=== PATIENT | male | born 1945 | race Caucasian/White ===

== ENCOUNTER 2019-03-21 08:36 | Day surgery (SDC) | payer OTHER, MEDICARE ==
[~2019-03-21 08:36] MED LIST: Lactated Ringers 1,000 ML IV SCH
[2019-03-21] MEDS ORDERED: Propofol 200 MG/20 ML SDV ONE (10:18)
[2019-03-21] MEDS ORDERED: fentaNYL 100 MCG/2 ML SDV ONE (10:18)
--- NOTE | 2019-03-21 20:15 | OR ---
DATE OF SURGERY: 03/21/2019. REFERRING PROVIDER: Carlos Enrique Schilling M.D. PREOPERATIVE DIAGNOSIS: History of colon polyps. Last colonoscopy was in 10/2013. 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 The patient denies any current symptoms or any known family history of colon cancer. POSTOPERATIVE DIAGNOSES: 1. Four small polyps, removed, all using cold forceps. a. A 2 mm cecal polyp. b. A 2 mm polyp at the entry to the cecum at 90 cm. c. A 4 mm polyp at 50 cm (splenic flexure). d. A 3 mm polyp at 40 cm. 2. Mild sigmoid diverticulosis. 3. Normal distal ileum. PROCEDURES: 1. Colonoscopy. 2. Polypectomy x4, all using cold forceps. SURGEON: Keaton Moore M.D. ANESTHESIA: Monitored anesthesia care. BOWEL PREPARATION: Good. Calvin is a 73-year-old male, was brought to the endoscopy suite after discussing risks and benefits of the procedure. Informed consent was obtained for conscious sedation and colonoscopy with or without biopsy and/or polypectomy. We also discussed possibility of missed lesions. Preprocedure exam was unremarkable. IV, oxygen, and monitors were placed. The patient was placed in the left lateral decubitus position. Sedation was administered, and a digital rectal exam was performed, which was unremarkable. Colonoscope was passed into the rectum and slowly advanced all the way to the cecum. Cecum was viewed and photographed. The ileocecal valve was intubated, and the distal ileum was normal in appearance. The cecum did contain one 2 mm polyp, which was removed with cold forceps. At the entry to the cecum in the ascending colon, there was another 2 mm polyp, removed with cold forceps. The colonoscope was slowly withdrawn, and the mucosa was closed observed in a direct circumferential manner. The remainder of the ascending colon was unremarkable. The transverse colon revealed a 4 mm polyp at 50 cm near the splenic flexure. This was removed with several bites using the cold forceps. The descending colon revealed a 3 mm polyp at 40 cm, removed with cold forceps. The sigmoid colon revealed some mild diverticulosis. Retroflexion was performed and rectal mucosa was unremarkable. Scope was removed. The patient tolerated the procedure well. The patient was monitored until that baseline status. Discharge instructions were reviewed, and the patient was discharged in good condition. COMPLICATIONS: None. TOTAL TIME: 25 minutes. ESTIMATED BLOOD LOSS: 1 to 2 mL. RECOMMENDATIONS/FOLLOWUP: We will await the results of the path report to determine the ideal followup interval. I will have the patient hold his aspirin for 3 days to limit any chance of bleeding from the polypectomy sites. I would like to kindly thank Dr. Schilling for this referral. DMB: 03/21/2019 12:32:34 MODL: 03/21/2019 20:11:25 /[id number]
== END 2019-03-21 13:00 | disposition home or self-care (01) ==
LOC: VM.SDS 08:36
PROVIDERS: ATTEND Family Medicine
DX: Z12.11 Encounter for screening for malignant neoplasm of colon (principal); K57.30 Diverticulosis of large intestine without perforation or abscess without bleeding; D12.0 Benign neoplasm of cecum; D12.5 Benign neoplasm of sigmoid colon; D12.3 Benign neoplasm of transverse colon; E78.5 Hyperlipidemia, unspecified; M19.032 Primary osteoarthritis, left wrist; M17.11 Unilateral primary osteoarthritis, right knee; K21.9 Gastro-esophageal reflux disease without esophagitis; E66.9 Obesity, unspecified; Z68.30 Body mass index [BMI] 30.0-30.9, adult; Z86.010 Personal history of colon polyps; Z79.899 Other long term (current) drug therapy; Z79.82 Long term (current) use of aspirin
CPT/HCPCS: J2704; J3010; J7120